=== PATIENT | female | born 1945 | race Caucasian/White ===

== ENCOUNTER 2024-12-04 07:58 | Day surgery (SDC) | payer MEDICARE, SELFPAY ==
[2024-11-28 07:33] VITALS: BMI 27.0
--- NOTE | 2024-11-29 10:22 | HO.ANESPROP2 ---
Documented by User: Livia Tsai NP 11/29/24 10:25 HPI - Anesthesia Eval Consult details Narrative: 79yo F for Right Cataract Extraction IOL Insertion No previous cataract on record [facility] Past Medical History Medical History (Updated 11/28/24 @ 07:23 by Yen Montiel RN) Bullous pemphigus Impaired fasting glucose Thyroid disease Hyperlipidemia Meniere disease Surgical History Surgical History (Updated 12/04/24 @ 08:34 by Taryn Shin RN) S/P breast lumpectomy Social History Social History Patient Tobacco Use Status: Never used Tobacco Use of substances other than those prescribed or required for medical reasons: No Advance Directives: No Advance Directives Information Provided: Yes Advance Directives on File: No Patient : No : No Meds Allergies Allergy/AdvReac Type Severity Reaction Status Date / Time codeine Allergy Unknown Verified 11/28/24 07:14 cyclobenzaprine Allergy Unknown Verified 11/28/24 07:14 meperidine (From Demerol) Allergy Unknown Verified 11/28/24 07:14 minocycline Allergy Unknown Verified 11/28/24 07:14 morphine Allergy Unknown Verified 11/28/24 07:14 nitrofurantoin (From Allergy Unknown Verified 11/28/24 07:14 Macrobid) Home Medications ?Medication ?Instructions ?Recorded ?Confirmed ?Last Taken ?Type ascorbic acid (vitamin C) 500 mg 500 mg PO DAILY 11/28/24 11/28/24 Unknown History tablet (Vitamin C) calcium 600 mg (as 1 tab PO DAILY 11/28/24 11/28/24 Unknown History carbonate)-vitamin D3 5 mcg (200 unit) tablet cinnamon bark 500 mg capsule 1,000 mg PO BID 11/28/24 11/28/24 Unknown History (Cinnamon) cranberry 500 mg capsule 500 mg PO DAILY 11/28/24 11/28/24 Unknown History flaxseed oil 1,000 mg capsule 1,000 mg PO DAILY 11/28/24 11/28/24 Unknown History levothyroxine 50 mcg tablet 50 mcg PO DAILY 11/28/24 11/28/24 12/04/24 History melatonin 10 mg tablet 10 mg PO BEDTIME 11/28/24 11/28/24 Unknown History metoprolol succinate 25 mg 25 mg PO DAILY 11/28/24 11/28/24 12/04/24 History tablet,extended release 24 hr simvastatin 20 mg tablet 20 mg PO BEDTIME 11/28/24 11/28/24 Unknown History triamterene 37.5 1 tab PO DAILY 11/28/24 11/28/24 Unknown History mg-hydrochlorothiazide 25 mg tablet turmeric root extract 500 mg 500 mg PO DAILY 11/28/24 11/28/24 Unknown History capsule vitamins A,C,J-qdma-jvfwwp 2,148 2 tab PO BID 11/28/24 11/28/24 Unknown History mcg-113 mg-45 mg-17.4 mg tablet (PreserVision AREDS) Exam Height,Weight and Vital Signs: Height 5 ft 2.8 in Weight 68.6 kg Assessment and Plan Assessment Anesthesia Assessment: Chart Reviewed Documented by User: Juliann Burks MD 12/04/24 09:08 [facility] Past Medical History Medical History (Updated 11/28/24 @ 07:23 by Yen Montiel RN) Bullous pemphigus Impaired fasting glucose Thyroid disease Hyperlipidemia Meniere disease Family History Family history of problems with anesthesia: No Surgical History Surgical History (Updated 12/04/24 @ 08:34 by Taryn Shin RN) S/P breast lumpectomy History of Problems with Anesthesia: No Social History Social History Patient Tobacco Use Status: Never used Tobacco Use of substances other than those prescribed or required for medical reasons: No Advance Directives: No Advance Directives Information Provided: Yes Advance Directives on File: No Patient : No : No Meds Allergies Allergy/AdvReac Type Severity Reaction Status Date / Time codeine Allergy Unknown Verified 11/28/24 07:14 cyclobenzaprine Allergy Unknown Verified 11/28/24 07:14 meperidine (From Demerol) Allergy Unknown Verified 11/28/24 07:14 minocycline Allergy Unknown Verified 11/28/24 07:14 morphine Allergy Unknown Verified 11/28/24 07:14 nitrofurantoin (From Allergy Unknown Verified 11/28/24 07:14 Macrobid) Home Medications ?Medication ?Instructions ?Recorded ?Confirmed ?Last Taken ?Type ascorbic acid (vitamin C) 500 mg 500 mg PO DAILY 11/28/24 11/28/24 Unknown History tablet (Vitamin C) calcium 600 mg (as 1 tab PO DAILY 11/28/24 11/28/24 Unknown History carbonate)-vitamin D3 5 mcg (200 unit) tablet cinnamon bark 500 mg capsule 1,000 mg PO BID 11/28/24 11/28/24 Unknown History (Cinnamon) cranberry 500 mg capsule 500 mg PO DAILY 11/28/24 11/28/24 Unknown History flaxseed oil 1,000 mg capsule 1,000 mg PO DAILY 11/28/24 11/28/24 Unknown History levothyroxine 50 mcg tablet 50 mcg PO DAILY 11/28/24 11/28/24 12/04/24 History melatonin 10 mg tablet 10 mg PO BEDTIME 11/28/24 11/28/24 Unknown History metoprolol succinate 25 mg 25 mg PO DAILY 11/28/24 11/28/24 12/04/24 History tablet,extended release 24 hr simvastatin 20 mg tablet 20 mg PO BEDTIME 11/28/24 11/28/24 Unknown History triamterene 37.5 1 tab PO DAILY 11/28/24 11/28/24 Unknown History mg-hydrochlorothiazide 25 mg tablet turmeric root extract 500 mg 500 mg PO DAILY 11/28/24 11/28/24 Unknown History capsule vitamins A,C,S-psst-jegjjr 2,148 2 tab PO BID 11/28/24 11/28/24 Unknown History mcg-113 mg-45 mg-17.4 mg tablet (PreserVision AREDS) Exam Airway Mallampati Class: II TM Dist: >3cm Neck ROM: Full Heart: rrr Lungs: cta Assessment and Plan Assessment Anesthesia Assessment: Anesthesia Plan Discussed Final Anesthetic Review Family History of Problems with Anesthesia: No History of Problems with Anesthesia: No NPO: Yes ASA Class: III Final Preanesthetic Review: No Changes in Pt Med Stat, Meds/Allgs Chart Reviewed and Consent Obtained/Reviewed Patient Risk: Low Procedure Risk: Low Anesthetic Plan Anesthetic Plan: MAC: Disposition: Standard PACU
[2024-12-04 08:34] VITALS: BP 121/65; PULSE 66; RESP 16; TEMP 36.5; O2SAT 98
[2024-12-04] MEDS: Tetracaine HCl/PF 0.5% Oph Sol 4 ML DROPS 1 DROP EYE-RIGHT (08:47)
[2024-12-04] MEDS: Cyclopentolate 1 % Ophth Sol 2 ML DRPBTL 1 DROP EYE-RIGHT ×3 (08:50→08:59)
[2024-12-04] MEDS: Lactated Ringers 500 ML 50 ML IV (08:51)
[2024-12-04] MEDS: Tropicamide 1 % Ophth Sol 3 ML BTL 1 DROP EYE-RIGHT ×3 (08:53→09:00)
[2024-12-04] MEDS: Ketorolac Tromethamine 0.5% Op 5 ML DROPS 1 DROP EYE-RIGHT ×3 (08:54→09:01)
[2024-12-04] MEDS: Phenylephrine HCL 2.5% Oph SoL 2 ML BOTTLE 1 DROP EYE-RIGHT ×3 (08:55→09:02)
--- NOTE | 2024-12-04 09:29 | MHC.SHP ---
Pre-Procedural Eval Section A - 24 Hr Update-Section A only Date of Service: 12/04/24 The patient is an INPATIENT: No Changes since office visit: No Cold of Flu in the past 2 weeks, No New Medical Problems, No Changes in Medication and No Patient answered all questions The patient has been examined within 24 hours of the surgical procedure. The History & Physical has been completed within 30 days and I have reviewed it.: Yes Section B - Complete if H&P > 30 days Chief Complaint: Age-related nuclear cataract, right eye Allergies: Allergies Allergy/AdvReac Type Severity Reaction Status Date / Time codeine Allergy Unknown Verified 11/28/24 07:14 cyclobenzaprine Allergy Unknown Verified 11/28/24 07:14 meperidine (From Demerol) Allergy Unknown Verified 11/28/24 07:14 minocycline Allergy Unknown Verified 11/28/24 07:14 morphine Allergy Unknown Verified 11/28/24 07:14 nitrofurantoin (From Allergy Unknown Verified 11/28/24 07:14 Macrobid) Plan Diagnosis/Plan: Unchanged I have reviewed the history and physical and performed a pertinent physical examination on my patient. No changes have occurred unless specified. Time Spent With Patient Time: Total time managing care of this patient today ____ minutes.
--- NOTE | 2024-12-04 09:30 | P.PCNO_ITS ---
Ophthalmology Procedure Procedure Date of Service: 12/04/24 Ophthalmology Viscoelastic: Healon Duet Dual Pack Pro Ophthalmology Lenses: IOL Acrysof MP - MA60AC (19) Procedure Notes: PREOPERATIVE DIAGNOSIS: Decreased visual acuity right eye secondary to cataract POSTOPERATIVE DIAGNOSIS: Same PROCEDURE: Right cataract extraction with intraocular lens insertion SURGEON: Homar Portillo M.D. ANESTHESIA: Topical/MAC ESTIMATED BLOOD LOSS: None COMPLICATIONS: None After obtaining informed consent, the patient was brought to the operating room suite and placed in the supine position. After adequate sedation per anesthesia, topical drops of Tetracaine were given to the right eye. The eye was then prepped and draped in the usual sterile fashion. The operating room microscope was then positioned over the operative eye and a lid speculum placed. A paracentesis was created. Viscoelastic was then instilled into the anterior chamber. A three plane incision was then created temporally, utilizing a 2.85 mm keratome. Capsulotomy forceps were then utilized to create a circular tear capsulotomy. Hydrodissection and hydrodelineation were carried out until adequate mobilization of the nucleus occurred. Phacoemulsification was then utilized to remove the dense central nucl eus followed by removal of the cortical material utilizing the automated aspiration irrigation unit. Viscoelastic was instilled into the posterior capsular bag followed by placement of a posterior chamber intraocular lens without difficulty. The residual Viscoelastic was then removed utilizing the automated IA machine. The wound was checked and found to be watertight. The patient tolerated the procedure well and the lid speculum was removed. Intracameral injection of Vigamox 0.1 mL followed by a subtenon injection of Kenalog-40 0.2 mL were administered. The patient will be seen in the a.m.
[2024-12-04 09:52] VITALS: BP 139/61; PULSE 66; RESP 16; TEMP 36.4; O2SAT 100
== END 2024-12-04 10:04 | disposition home or self-care (01) ==
PROVIDERS: PCP Internal Medicine; Visit Provider Ophthalmology
PROC: (CPT 66985; principal; 2024-12-04 10:30)
DX: H25.11 Age-related nuclear cataract, right eye (principal); H52.4 Presbyopia; H35.3131 Nonexudative age-related macular degeneration, bilateral, early dry stage; H18.413 Arcus senilis, bilateral; H11.153 Pinguecula, bilateral; H43.393 Other vitreous opacities, bilateral; I10 Essential (primary) hypertension; R73.01 Impaired fasting glucose; E03.9 Hypothyroidism, unspecified; H81.09 Meniere's disease, unspecified ear; Z85.3 Personal history of malignant neoplasm of breast; Z79.899 Other long term (current) drug therapy; Z88.5 Allergy status to narcotic agent; Z88.1 Allergy status to other antibiotic agents
CPT/HCPCS: 66984; J3301; V2630

== ENCOUNTER 2024-12-18 07:21 | Day surgery (SDC) | payer MEDICARE, SELFPAY ==
--- OUTSIDE RECORDS SUMMARY | 2024-11-08 10:13 | XMS_ITS | Continuity of Care Document ---
Author Organization [facility] Address [address] [place] [address] Phone Care Team Providers Care Proof Press Operator Name Role Phone Yen Prajapati MD Unavailable Unavailabl e Allergies, Adverse Reactions, Alerts Substance Reaction Status Criticality MEPERIDINE HCL Nausea Active No Informatio n codeine Nausea/Vomiting Active No Informati on Medications Medication Instructions Dosage Effective Dates (start - stop) Status Comments Nexium 20 mg Cap Take one tablet by mouth daily - Active Dyazide 37.5 mg-25 mg Cap As Directed - Active Zocor 20 mg Tab As Directed - Active Synthroid 50 mcg Tab - Activ e Procedures Procedure Date cytopath cerv/vag thin pr Cytpth Cerv/vag; Manual S Advance Directives Directive Yes / No Effective Date File Name No Information Encounters Encounter Description Practice Location Reason(s) For Visit Diagnoses Date Provider Providers Copied on Encounter [facility], [address], [place], [place], [id number], [place] tel:[phone] [facility] No Information Victorina Barlow. [address] [place] [address], [id number] , [place]. tel:[phone] Referring Provider: Yen Prajapati MD, [address] [place] [address], [id number] . tel:[phone] [facility], [address], [place], [place], [id number], tel:[phone] [facility] annual visit (chief complaint) No Information Victorina Barlow. [address] [place] [address], [id number] , . tel:[phone] Referring Provider: Yen Prajapati MD, [address] [place] [address], [id number] . tel:[phone] [facility], [address], [place], [place], [id number], tel:[phone] [facility] annual visit (chief complaint) No Information Victorina Barlow. [address] [place] [address], [id number] , [place]. tel:[phone] Family History Family Member Type Diagnosis Age At Onset Mother Problem (finding) osteoporosis Maternal aunt Problem (finding) breast cancer Sister Problem (finding) malignant neop lasm of breast in first degree relative Payers Payer name Insurance type Covered constitution party ID Authordianea kaseyhemant(s) [employer] ([facility]) CI [id number] Social History Type Description Quantity Date Captured Comments Sex Female Smoking Status No Information Chief Complaint And Reason For Visit No Information Reason For Referral Reason For Referral No Information History Of Present Illness Encounter Date Complaint History Of Prese nt Illness No Information Functional Status Date Functional Assessmen t No Information Instructions Date Instruction Additional Infor mation No Information Assessments Type Assessment Date No Information Patient Care Teams Name Effective Dates (start - stop) Status Members No Information
[2024-11-28 07:39] VITALS: BMI 27.1
--- NOTE | 2024-12-15 10:08 | HO.ANESPROP2 ---
HPI - Anesthesia Eval Consult details Narrative: 79yo F for Left Cataract Extraction IOL Insertion Right eye 12/04/24: No meds PMFSH Past Medical History Medical History (Updated 11/28/24 @ 07:23 by Yen Montiel RN) Bullous pemphigus Impaired fasting glucose Thyroid disease Hyperlipidemia Meniere disease Family History Family history of problems with anesthesia: No Surgical History Surgical History (Updated 12/04/24 @ 08:34 by Taryn Shin RN) S/P breast lumpectomy History of Problems with Anesthesia: No Social History Social History Patient Tobacco Use Status: Never used Tobacco Use of substances other than those prescribed or required for medical reasons: No Advance Directives: No Advance Directives Information Provided: No Advance Directives on File: No Patient : No : No Meds Allergies Allergy/AdvReac Type Severity Reaction Status Date / Time codeine Allergy Unknown Verified 11/28/24 07:14 cyclobenzaprine Allergy Unknown Verified 11/28/24 07:14 meperidine (From Demerol) Allergy Unknown Verified 11/28/24 07:14 minocycline Allergy Unknown Verified 11/28/24 07:14 morphine Allergy Unknown Verified 11/28/24 07:14 nitrofurantoin (From Allergy Unknown Verified 11/28/24 07:14 Macrobid) Home Medications ?Medication ?Instructions ?Recorded ?Confirmed ?Last Taken ?Type ascorbic acid (vitamin C) 500 mg 500 mg PO DAILY 11/28/24 11/28/24 Unknown History tablet (Vitamin C) calcium 600 mg (as 1 tab PO DAILY 11/28/24 11/28/24 Unknown History carbonate)-vitamin D3 5 mcg (200 unit) tablet cinnamon bark 500 mg capsule 1,000 mg PO BID 11/28/24 11/28/24 Unknown History (Cinnamon) cranberry 500 mg capsule 500 mg PO DAILY 11/28/24 11/28/24 Unknown History flaxseed oil 1,000 mg capsule 1,000 mg PO DAILY 11/28/24 11/28/24 Unknown History levothyroxine 50 mcg tablet 50 mcg PO DAILY 11/28/24 11/28/24 12/04/24 History melatonin 10 mg tablet 10 mg PO BEDTIME 11/28/24 11/28/24 Unknown History metoprolol succinate 25 mg 25 mg PO DAILY 11/28/24 11/28/24 12/04/24 History tablet,extended release 24 hr simvastatin 20 mg tablet 20 mg PO BEDTIME 11/28/24 11/28/24 Unknown History triamterene 37.5 1 tab PO DAILY 11/28/24 11/28/24 Unknown History mg-hydrochlorothiazide 25 mg tablet turmeric root extract 500 mg 500 mg PO DAILY 11/28/24 11/28/24 Unknown History capsule vitamins A,C,M-hfqn-tojtmh 2,148 2 tab PO BID 11/28/24 11/28/24 Unknown History mcg-113 mg-45 mg-17.4 mg tablet (PreserVision AREDS) Exam Height,Weight and Vital Signs: Height 5 ft 2.6 in Weight 68.6 kg Assessment and Plan Assessment Anesthesia Assessment: Chart Reviewed Final Anesthetic Review Family History of Problems with Anesthesia: No History of Problems with Anesthesia: No
[2024-12-18 08:18] VITALS: BP 142/55; PULSE 60; RESP 16; TEMP 36.8; O2SAT 97
[2024-12-18] MEDS: Tetracaine HCl/PF 0.5% Oph Sol 4 ML DROPS 1 DROP EYE-LEFT (08:20)
[2024-12-18] MEDS: Cyclopentolate 1 % Ophth Sol 2 ML DRPBTL 1 DROP EYE-LEFT ×3 (08:21→08:29)
[2024-12-18] MEDS: Tropicamide 1 % Ophth Sol 3 ML BTL 1 DROP EYE-LEFT ×3 (08:22→08:30)
[2024-12-18] MEDS: Ketorolac Tromethamine 0.5% Op 5 ML DROPS 1 DROP EYE-LEFT ×3 (08:23→08:31)
[2024-12-18] MEDS: Phenylephrine HCL 2.5% Oph SoL 2 ML BOTTLE 1 DROP EYE-LEFT ×3 (08:24→08:32)
--- NOTE | 2024-12-18 09:14 | MHC.SHP ---
Pre-Procedural Eval Section A - 24 Hr Update-Section A only Date of Service: 12/18/24 The patient is an INPATIENT: No Changes since office visit: No Cold of Flu in the past 2 weeks, No New Medical Problems, No Changes in Medication and No Patient answered all questions The patient has been examined within 24 hours of the surgical procedure. The History & Physical has been completed within 30 days and I have reviewed it.: Yes Section B - Complete if H&P > 30 days Chief Complaint: Age-related nuclear cataract, left eye Allergies: Allergies Allergy/AdvReac Type Severity Reaction Status Date / Time codeine Allergy Unknown Verified 11/28/24 07:14 cyclobenzaprine Allergy Unknown Verified 11/28/24 07:14 meperidine (From Demerol) Allergy Unknown Verified 11/28/24 07:14 minocycline Allergy Unknown Verified 11/28/24 07:14 morphine Allergy Unknown Verified 11/28/24 07:14 nitrofurantoin (From Allergy Unknown Verified 11/28/24 07:14 Macrobid) Plan Diagnosis/Plan: Unchanged I have reviewed the history and physical and performed a pertinent physical examination on my patient. No changes have occurred unless specified. Time Spent With Patient Time: Total time managing care of this patient today ____ minutes.
--- NOTE | 2024-12-18 09:15 | HO.PNOPHT ---
Ophthalmology Procedure Procedure Date of Service: 12/18/24 Ophthalmology Viscoelastic: Healon Duet Dual Pack Pro Ophthalmology Lenses: IOL Acrysof MP - MA60AC (18) Procedure Notes: PREOPERATIVE DIAGNOSIS: Decreased visual acuity left eye secondary to cataract POSTOPERATIVE DIAGNOSIS: Same PROCEDURE: Left cataract extraction with intraocular lens insertion SURGEON: Homar Portillo M.D. ANESTHESIA: Topical ESTIMATED BLOOD LOSS: None COMPLICATIONS: None After obtaining informed consent, the patient was brought to the operation room suite and placed in the supine position. After adequate sedation per anesthesia, topical drops of Tetracaine were given to the left eye. The eye was then prepped and draped in the usual sterile fashion. The operating room microscope was then positioned over the operative eye and a lid speculum placed. A paracentesis was created. Viscoelastic was then instilled into the anterior chamber. A three plane incision was then created temporally, utilizing a 2.85 mm keratome. Capsulotomy forceps were then utilized to create a circular tear capsulotomy. Hydrodissection and hydrodelineation were carried out until adequate mobilization of the nucleus occurred. Phacoemulsification was then utilized to remove the dense central nucleus followed by removal of the cortical material utilizing the automated aspiration irrigation unit. Viscoat elastic was instilled into the posterior capsular bag followed by placement of a posterior chamber intraocular lens without difficulty. The residual Viscoat elastic was then removed utilizing the automated IA machine. The wound was check and found to be watertight. The patient tolerated the procedure well and the lid speculum was removed. Intracameral injection of Vigamox 0.1 mL followed by a subtenon injection of Kenalog-40 0.2 mL were administered. The patient will be seen in the a.m.
[2024-12-18 09:35] VITALS: BP 146/59; PULSE 59; RESP 18; TEMP 36.8; O2SAT 98
== END 2024-12-18 09:47 | disposition home or self-care (01) ==
PROVIDERS: PCP Internal Medicine; Visit Provider Ophthalmology
PROC: (CPT 66985; principal; 2024-12-18 09:30)
DX: H25.12 Age-related nuclear cataract, left eye (principal); H52.4 Presbyopia; H35.3131 Nonexudative age-related macular degeneration, bilateral, early dry stage; H18.413 Arcus senilis, bilateral; H11.153 Pinguecula, bilateral; H43.393 Other vitreous opacities, bilateral; E11.9 Type 2 diabetes mellitus without complications; I10 Essential (primary) hypertension; E07.9 Disorder of thyroid, unspecified; H81.09 Meniere's disease, unspecified ear; E78.00 Pure hypercholesterolemia, unspecified; Z79.899 Other long term (current) drug therapy; Z88.1 Allergy status to other antibiotic agents; Z88.5 Allergy status to narcotic agent
CPT/HCPCS: 66984; J2003; J3301; V2630